=== PATIENT | female | born 1980 | race Hispanic/Latino ===

== ENCOUNTER 2017-06-12 20:44 | Emergency (ER) | payer OTHER ==
[2017-06-12 21:55] VITALS: BP 139/97
[2017-06-12] MEDS ORDERED: MORPHINE IV ONE (23:55)
[2017-06-13 00:46] LABS: Basophils % (Auto) 0.4 % (0.0-1.8); Eosinophils % (Auto) 0.1 % (0.0-4.3); Hematocrit 38.6 % (30.3-42.9); Hemoglobin 12.6 gm/dl (10.1-14.3); Mean Corpuscular HGB Conc 33 % (30-34); Mean Corpuscular Hemoglobin 27 pg (28-32); Mean Corpuscular Volume 82 fl (79-97); Platelet Count 329 K/mm3 (140-440); Red Blood Count 4.72 M/mm3 (3.65-5.03); Red Cell Distribution Width 14.9 % (13.2-15.2); White Blood Count 16.8 K/mm3 (4.5-11.0)
[2017-06-13 00:50] LABS: Anion Gap 20 mmol/L; BUN/Creatinine Ratio 13; Blood Urea Nitrogen 12 mg/dL (7-17); Calcium 9.6 mg/dL (8.4-10.2); Carbon Dioxide 25 mmol/L (22-30); Chloride 97.2 mmol/L (98-107); Glucose 97 mg/dL (65-100); Potassium 4.1 mmol/L (3.6-5.0); Sodium 138 mmol/L (137-145)
[2017-06-13] MEDS ORDERED: NACL ONE (02:24)
[2017-06-13] MEDS ORDERED: CLEOCIN 600 MG/50 mL 600 MG/50 ML BAG IV ONE (03:11)
[2017-06-13] MEDS ORDERED: NACL 0.9% 500 ML 500 ML IV ONE (03:11)
--- NOTE | 2017-06-13 03:11 | Emergency Department Report ---
- General Chief complaint: Skin/Abscess/Foreign Body Stated complaint: INSECT BITE Time Seen by Provider: 06/12/17 23:37 Source: patient Mode of arrival: Ambulatory Limitations: No Limitations - History of Present Illness Initial comments: 37-year-old female past medical history obesity, hypertension presents with complaint of right-sided facial swelling and facial pain for 5 days. Significant right-sided facial swelling. Patient complains of subjective fever and chills. States she has blurry vision right eye due to significant facial swelling. Patient states she went to urgent care and was given Bactrim but swelling has worsened. Visible erythema right side face. Some watery discharge right eye. MD complaint: abscess/boil, discoloration Onset/Timin -: days(s) Severity: moderate Severity scale (0 -10): 6 Quality: aching Consistency: constant Improves with: cold therapy Worsens with: none Associated symptoms: fever Treatments Prior to Arrival: none - Related Data Previous Rx's Medication Instructions Recorded Last Taken Type Clindamycin [Clindamycin CAP] 300 mg PO Q6H #28 capsule 06/13/17 Unknown Rx HYDROcodone/APAP 5-325 [[place] 1 each PO Q6HR PRN #12 tablet 06/13/17 Unknown Rx 5/325] methylPREDNISolone [Medrol] 4 mg PO QDAY #1 tab.ds.pk 06/13/17 Unknown Rx Allergies Allergy/AdvReac Type Severity Reaction Status Date / Time No Known Allergies Allergy Unverified 06/12/17 22:17 Abscess Boil HPI - HPI Chief Complaint: Skin/Abscess/Foreign Body Stated Complaint: INSECT BITE Time Seen by Provider: 06/12/17 23:37 Home Medications: Previous Rx's Medication Instructions Recorded Last Taken Type Clindamycin [Clindamycin CAP] 300 mg PO Q6H #28 capsule 06/13/17 Unknown Rx HYDROcodone/APAP 5-325 [[place] 1 each PO Q6HR PRN #12 tablet 06/13/17 Unknown Rx 5/325] methylPREDNISolone [Medrol] 4 mg PO QDAY #1 tab.ds.pk 06/13/17 Unknown Rx Allergies/Adverse Reactions: Allergies Allergy/AdvReac Type Severity Reaction Status Date / Time No Known Allergies Allergy Unverified 06/12/17 22:17 ED Review of Systems ROS: Stated complaint: INSECT BITE Other details as noted in HPI Constitutional: denies: chills, fever Eyes: denies: eye pain, eye discharge, vision change ENT: as per HPI (visible right sided facial swelling around right eye). denies : ear pain, throat pain Respiratory: denies: cough, shortness of breath, wheezing Cardiovascular: denies: chest pain, palpitations Endocrine: no symptoms reported Gastrointestinal: denies: abdominal pain, nausea, diarrhea Genitourinary: denies: urgency, dysuria, discharge Musculoskeletal: denies: back pain, joint swelling, arthralgia Skin: denies: rash, lesions Neurological: denies: headache, weakness, paresthesias Psychiatric: denies: anxiety, depression Hematological/Lymphatic: denies: easy bleeding, easy bruising ED Past Medical Hx - Past Medical History Hx Hypertension: Yes - Social History Smoking Status: Never Smoker Substance Use Type: None - Medications Home Medications: Home Medications Medication Instructions Recorded Confirmed Last Taken Type Clindamycin [Clindamycin CAP] 300 mg PO Q6H #28 capsule 06/13/17 Unknown Rx HYDROcodone/APAP 5-325 [[place] 1 each PO Q6HR PRN #12 tablet 06/13/17 Unknown Rx 5/325] methylPREDNISolone [Medrol] 4 mg PO QDAY #1 tab.ds.pk 06/13/17 Unknown Rx ED Physical Exam - General Limitations: No Limitations General appearance: alert, in no apparent distress - Head Head exam: Present: atraumatic - Expanded Head Exam Expanded 1 - Severe right sided facial swelling and erythema here with palpable fluctuance - Eye Eye exam: Present: normal appearance, PERRL, EOMI, periorbital swelling, periorbital tenderness - ENT ENT exam: Present: mucous membranes moist - Neck Neck exam: Present: normal inspection, full ROM - Respiratory Respiratory exam: Present: normal lung sounds bilaterally. Absent: respiratory distress - Cardiovascular Cardiovascular Exam: Present: regular rate, normal rhythm. Absent: systolic murmur, diastolic murmur, rubs, gallop - GI/Abdominal GI/Abdominal exam: Present: soft, normal bowel sounds - Extremities Exam Extremities exam: Present: normal inspection - Back Exam Back exam: Present: normal inspection - Neurological Exam Neurological exam: Present: alert, oriented X3 - Psychiatric Psychiatric exam: Present: normal affect, normal mood - Skin Skin exam: Present: warm, dry, intact, normal color. Absent: rash ED Course Vital Signs 06/12/17 06/12/17 06/13/17 21:51 22:11 00:11 Temperature 99.0 F 99 F Pulse Rate 107 H 110 H Respiratory 18 18 18 Rate Blood Pressure 139/97 139/97 O2 Sat by Pulse 98 98 Oximetry 06/13/17 06/13/17 04:45 05:43 Temperature Pulse Rate Respiratory 18 18 Rate Blood Pressure O2 Sat by Pulse 100 Oximetry ED Medical Decision Making - Lab Data Result diagrams: 06/13/17 00:24 06/13/17 00:24 - Medical Decision Making A/P: Periorbital cellulitis 1-Case discussed with ED attending also examined the patient 2-visuaol acuity is 20/40 right eye, 20/20 left eye, 20/[address] scan shows no discrete abscess. Significant improvement of swelling with dose of IV steroids and antibiotics 3-I discussed abx regimen with Dr. Clark, will place patient on course of [place] to cover fo staph, pt can also continue Bactrim. Motrin when necessary, [place] when necessary 4-patient discharged. I advised her to return within 24-48 hours for recheck of cellulitis. She agreed to do so. Critical care attestation.: If time is entered above; I have spent that time in minutes in the direct care of this critically ill patient, excluding procedure time. ED Disposition Clinical Impression: Periorbital cellulitis of right eye Disposition: DC- TO HOME OR SELFCARE Is pt being admited?: No Does the pt Need Aspirin: No Condition: Stable Instructions: Cellulitis (ED), Orbital Cellulitis (ED) Additional Instructions: return to ED in 48 hours for re-eval Prescriptions: Clindamycin [Clindamycin CAP] 300 mg PO Q6H #28 capsule HYDROcodone/APAP 5-325 [[place] 5/325] 1 each PO Q6HR PRN #12 tablet PRN Reason: Pain methylPREDNISolone [Medrol] 4 mg PO QDAY #1 tab.ds.pk Referrals: [facility] [place][Note 3] [Outside] - 3-5 Days [facility] [Outside] - 3-5 Days Forms: Accompanied Note, Work/School Release Form(ED)
--- NOTE | 2017-06-13 04:09 | Cat Scan Report ---
FINAL REPORT EXAM: CT FACIAL BONES W CON HISTORY: INSECT BITE RT FACE SWELLING TECHNIQUE: CT images are acquired through the face following intravenous administration of contrast. Transaxial , coronal and sagittal reformations are provided. PRIORS: None. FINDINGS: There is preseptal right periorbital superficial soft tissue swelling and skin thickening. Edema extends posteriorly in the right face in the temporal region. Mild edema surrounding the right temporalis muscle. No focal fluid collection to suggest abscess formation. Small air-fluid levels are present in the maxillary sinuses. The paranasal sinuses and mastoid air cells are otherwise clear. Normal spherical shape of the globes. The retro bulbar fat is unremarkable. Imaged portion of the brain is grossly unremarkable. No facial fractures. The bony orbits, nasal bones, pterygoid plates, mandible and maxilla are intact. IMPRESSION: Preseptal right periorbital cellulitis without focal fluid collection to suggest abscess formation.
[2017-06-13] MEDS ORDERED: MORPHINE IV ONE (05:14)
== END 2017-06-13 07:18 | disposition home or self-care (01) ==
LOC: ED 20:44
DX: R51 Headache (principal); R50.9 Fever, unspecified; I10 Essential (primary) hypertension
CPT/HCPCS: 36415; 70487; 80048; 81025; 82140; 85025; 87040; 96365; 96375; 96376; 99284; J2270; J2930; J7040; Q9967

== ENCOUNTER 2018-02-10 14:12 | Emergency (ER) | payer OTHER ==
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
[2018-02-10] MEDS ORDERED: XYLOCAINE 1% MPF 5 mL INFILTRATI ONE (18:05)
[2018-02-10] MEDS ORDERED: NORCO 7.5/325 PO ONE (18:05)
[2018-02-10] MEDS ORDERED: BOOSTRIX IM ONE (18:05)
[2018-02-10] MEDS ORDERED: NACL 0.9% IR PRN (18:05)
[2018-02-10] MEDS ORDERED: HYDROGEN PEROXIDE ONE (18:05)
[2018-02-10 19:35] VITALS: BP 132/83
== END 2018-02-10 19:35 | disposition home or self-care (01) ==
LOC: ED 14:12
DX: S01.511A Laceration without foreign body of lip, initial encounter (principal); I10 Essential (primary) hypertension; Z87.891 Personal history of nicotine dependence; Z88.0 Allergy status to penicillin; V89.2XXA Person injured in unspecified motor-vehicle accident, traffic, initial encounter; Y93.89 Activity, other specified; Y92.89 Other specified places as the place of occurrence of the external cause; Y99.8 Other external cause status
CPT/HCPCS: 90471; 90715; 99282